=== PATIENT | male | born 1940 | race Caucasian/White ===

== ENCOUNTER 2017-02-05 11:39 | Emergency (ER) | payer MEDICARE, BC ==
[~2017-02-05] VITALS: Ht 190.5 cm; Wt 102.1 kg
[~2017-02-05 11:39] MED LIST: ASPI81TA2 PO; BISA10SU61 RC; DILT30TA2 PO; DONE5TAB3 PO; FAMO20TA8 PO; HYDR-552 PO; LEVO50TA8 PO; MAGN400O6 PO; MULT-213 PO; RISP0.253 PO; TYL2T PO
[2017-02-05 12:57] VITALS: BP 116/65
== END 2017-02-05 12:57 | disposition home or self-care (01) ==
LOC: ER 11:41
DX: S81.811A Laceration without foreign body, right lower leg, initial encounter (principal); I10 Essential (primary) hypertension; E11.9 Type 2 diabetes mellitus without complications; Z88.8 Allergy status to other drugs, medicaments and biological substances; Z85.89 Personal history of malignant neoplasm of other organs and systems; Z79.82 Long term (current) use of aspirin; W22.8XXA Striking against or struck by other objects, initial encounter; Y93.89 Activity, other specified; Y92.89 Other specified places as the place of occurrence of the external cause; Y99.9 Unspecified external cause status
CPT/HCPCS: 12002; 99283; A4606; Z7610

== ENCOUNTER 2017-07-08 20:24 | Emergency (ER) | payer MEDICARE, BC ==
[~2017-07-08] VITALS: Ht 175.3 cm; Wt 74.8 kg
--- NOTE | 2017-07-08 20:45 | NUR ---
76 YO MALE [facility]. PER EMT, PT WAS SENT FROM [facility] FOR WOUND CARE AND URINARY RETENTION. PT STATES HE IS ABLE TO PEE, NOTED REDNESS/ SWELLING IN GROIN AREA. PT GOWNED, PLACED ON SUPERVISOR RECLAMATION. SKIN WARM AND DRY, RR EVEN AND UNLABORED. AWAITING ORDERS FROM PROVIDER
--- NOTE | 2017-07-08 21:00 | NUR ---
20G RIGHT AC IV STARTED, BLOOD SAMPLE OBTAINED AND SENT TO LAB.
--- NOTE | 2017-07-08 21:07 | NUR ---
[employer] [employer] CERTIFIED ORTHOTIST AT BED SIDE FOR US OF THE SCROTUM
[2017-07-08 21:14] LABS: BASOPHILS % (AUTO) 0.4 % (0.0-2.0); EOSINOPHILS # (AUTO) 0.7 /CMM (0.0-0.7); EOSINOPHILS % (AUTO) 5.5 % (0.0-6.0); HEMATOCRIT 41 % (39-51); HEMOGLOBIN 13.2 g/dL (13.5-17.5); LYMPHOCYTES # (AUTO) 0.9 /CMM (0.8-4.8); LYMPHOCYTES % (AUTO) 7.2 % (20.0-44.0); MEAN CORPUSCULAR HEMOGLOBIN 29 PG (26.0-33.0); MEAN CORPUSCULAR HGB CONC 32 g/dl (31.0-36.0); MEAN CORPUSCULAR VOLUME 91 fL (80-96); MONOCYTES # (AUTO) 1.2 /CMM (0.1-1.30); MONOCYTES % (AUTO) 9.5 % (2.0-12.0); NEUTROPHILS # (AUTO) 9.6 /CMM (1.8-8.9); NEUTROPHILS % (AUTO) 77.4 % (43.0-81.0); PLATELET COUNT (AUTO) 212 /CMM (150-450); RDW COEFFICIENT OF VARIATION 14.7 (11.5-15.0); RED BLOOD CELL COUNT(AUTO) 4.57 MIL/uL (4.5-6.0); WHITE BLOOD COUNT (AUTO) 12.4 K/uL (4.3-11.0)
[2017-07-08 21:41] LABS: ALANINE AMINOTRANSFERASE 28 U/L (12-78); ALBUMIN 3.1 g/dL (3.4-5.0); ALKALINE PHOSPHATASE 69 U/L (46-116); ASPARTATE AMINOTRANSFERASE 15 U/L (15-37); BILIRUBIN,DIRECT 0.1 mg/dL (0.0-0.2); BILIRUBIN,TOTAL 0.4 mg/dL (0.2-1.0); CALCIUM, SERUM 8.3 mg/dL (8.5-10.1); CARBON DIOXIDE 25 mmol/L (21-32); CHLORIDE 107 mmol/L (98-107); CREATININE 2.2 mg/dL (0.6-1.3); GLUCOSE 67 mg/dL (74-106); LIPASE 144 U/L (73-393); POTASSIUM 4.7 mmol/L (3.5-5.1); SODIUM SERUM 139 mmol/L (136-145); TOTAL PROTEIN, SERUM 3.2 g/dL (6.4-8.2); UREA NITROGEN, BLOOD 59 mg/dL (7-18)
--- NOTE | 2017-07-08 21:53 | NUR ---
DAUGHTER CHARLY WOULD LIKE TO BE KEPT UPDATED. HER INFORMATION LISTED IN PT DEMOGRAPHICS
[2017-07-08] MEDS ORDERED: ASPIRIN 300 MG/SUPP.RECT RC ONE (22:00)
[2017-07-08] MEDS ORDERED: DEXTROSE 50%-WATER 50 ML DISP.SYRIN ONE (23:17)
[2017-07-08] MEDS ORDERED: IV NS 0.9% 1,000 ML BAG IV ONE (23:30)
[2017-07-08] MEDS ORDERED: IV D5W 1,000 ML IV ONE (23:47)
[2017-07-09] MEDS ORDERED: DEXTROSE 50%-WATER 50 ML DISP.SYRIN IVP ONE
[2017-07-09 00:04] LABS: INR 0.98 (0.87-1.13); PROTHROMBIN TIME 10.5 SECS (9.5-12.7)
--- NOTE | 2017-07-09 00:28 | NUR ---
CALLED [facility] FOR BLS TRANSPORT BACK TO FACILITY. ETA 30 MINUTES
--- NOTE | 2017-07-09 00:43 | NUR ---
EVELIO NURSE TOOK REPORT AT [facility]
[2017-07-09 01:05] VITALS: BP 116/74
--- NOTE | 2017-07-09 01:08 | NUR ---
REPORT GIVEN TO EMT FOR TRANSPORT. Patient discharged to home in stable condition. Written and verbal after care instructions given. Patient verbalizes understanding of instruction.IV removed. Catheter intact and site benign. Pressure and 4x4 applied to site. No bleeding noted.(pt. name) ambulatory with a steady gait VITAL SIGNS WITHIN NORMAL LIMITS.
== END 2017-07-09 01:06 | disposition home or self-care (01) ==
LOC: ER 20:29
DX: I12.0 Hypertensive chronic kidney disease with stage 5 chronic kidney disease or end stage renal disease (principal); E11.22 Type 2 diabetes mellitus with diabetic chronic kidney disease; N18.6 End stage renal disease; B35.6 Tinea cruris; N50.89 Other specified disorders of the male genital organs; Z79.82 Long term (current) use of aspirin; Z88.8 Allergy status to other drugs, medicaments and biological substances
CPT/HCPCS: 36415; 71010; 76856; 76870; 80048; 80076; 82962 ×4; 83690; 85025; 85730; 96361; 96374; 99285; A4606; J7030 ×2; J7070; Z7610